=== PATIENT | male | born 1995 | race Caucasian/White ===

== ENCOUNTER 2019-07-11 06:47 | Emergency (ER) | payer BC ==
[~2019-07-11] VITALS: Ht 185.4 cm; Wt 95.3 kg
[2019-07-11 06:55] VITALS: BP_SYST 149
--- NOTE | 2019-07-11 07:03 | NUR ---
Patient is awake, alert, and oriented x4. Patient is complaining of constipation x3 days with rectal pain, abdominal pain, nausea and vomiting x1. Patient reports going to urgent care yesterday, rectal exam was negative and he was given a prescription that has been ineffective.
--- NOTE | 2019-07-11 07:03 | NUR ---
Patient to ER bed 7 to gown for evaluation. Side rails up. Report given to NORAH PARNELL.
--- NOTE | 2019-07-11 07:49 | NUR ---
ER Dr. Isidro at bedside examining patient.
--- NOTE | 2019-07-11 07:57 | NUR ---
X-ray at bedside.
[2019-07-11 08:30] VITALS: BP_SYST 138
--- NOTE | 2019-07-11 08:30 | NUR ---
Patient given written and verbal discharge instructions and verbalizes understanding. ER MD discussed with patient the results and treatment provided. Patient in stable condition. ID arm band removed. Rx of miralax, flagyl, cipro, tylenol given. Patient educated on pain management and to follow up with PMD. Pain Scale 0/10. Opportunity for questions provided and answered. Medication side effect fact sheet provided.
== END 2019-07-11 08:30 | disposition home or self-care (01) ==
LOC: SED 06:47
DX: K62.89 Other specified diseases of anus and rectum (principal)
CPT/HCPCS: 72170-TC; 99283

== ENCOUNTER 2019-07-14 13:53 | Emergency (ER) | payer BC ==
[~2019-07-14] VITALS: Ht 185.4 cm; Wt 94.3 kg
[2019-07-14 14:14] VITALS: BP_SYST 160
--- NOTE | 2019-07-14 15:21 | NUR ---
Patient to ER bed 06 for evaluation. Side rails up. Report given to Kayleigh PARNELL.
--- NOTE | 2019-07-14 15:25 | NUR ---
Patient arrived in the ED c/o rectal pain and minimal bleeding that started on Saturday. Patient was seen in [facility] and was prescribed a rectal cream and antibiotic. Denied any chest pain or shortness of breath. Denied any fevers, nausea, vomiting, or chills. Patient is alert and oriented x4, respirations even and unlabored, speaking in full sentences, ambulating with a steady gait. VSS, pain level 6/10. Mom at bedside. Informed of wait time. Instructed to notify ED staff for any changes in condition or worsening of symptoms. Patient verbalized understanding.
--- NOTE | 2019-07-14 16:00 | NUR ---
ER Dr. Hedrick at bedside examining patient.
[2019-07-14] MEDS ORDERED: MORPHINE 4 MG/ML INJ. SYRINGE IVP ONE (16:15)
[2019-07-14] MEDS ORDERED: ONDANSETRON HCL 4 MG/2 ML VIAL IVP ONE (16:15)
--- NOTE | 2019-07-14 16:22 | NUR ---
Administered Zofran and Morphine IVP as ordered by Dr. Hedrick. Patient tolerated the medications well. See eMAR for details.
--- NOTE | 2019-07-14 16:22 | NUR ---
# 20 gauge angiocath placed to LAC. Use of asceptic technique. Opsite placed over site. Blood return noted. Blood for lab drawn from site. Flushed with 10 cc of normal saline. No evidence of infiltration noted. Patient tolerated well.
[2019-07-14] MEDS ORDERED: IOHEXOL 100 ML IV ONE (16:33)
[2019-07-14 16:40] LABS: BASOPHILS % (AUTO) 0.2 % (0.0-2.0); EOSINOPHILS % (AUTO) 0.2 % (0.0-4.0); HEMATOCRIT 49.5 % (36-54); HEMOGLOBIN 16.7 g/dL (14.0-18.0); LYMPHOCYTES % (AUTO) 8.1 % (20.5-51.5); MEAN CORPUSCULAR HEMOGLOBIN 31 pg (27-31); MEAN CORPUSCULAR HGB CONC 34 % (32-36); MEAN CORPUSCULAR VOLUME 92 fL (79.0-98.0); MONOCYTES # (AUTO) 1.1 K/uL (0.0-1.0); MONOCYTES % (AUTO) 8.7 % (1.7-9.3); NEUTROPHILS # (AUTO) 10.3 K/uL (1.8-7.7); NEUTROPHILS % (AUTO) 82.8 % (40.0-70.0); PLATELET COUNT (AUTO) 256 K/uL (130-430); RED BLOOD CELL COUNT(AUTO) 5.37 MIL/uL (4.2-6.2); RED CELL DISTRIBUTION WIDTH 13.2 % (9.0-15.0); WHITE BLOOD COUNT (AUTO) 12.5 K/uL (4.8-10.8)
--- NOTE | 2019-07-14 16:50 | NUR ---
Consent for CT signed.
--- NOTE | 2019-07-14 16:53 | NUR ---
Patient is taken to CT via wheelchair, in stable condition.
[2019-07-14 17:04] LABS: CALCIUM 9.4 mg/dL (8.4-11.0); CREATININE 1.04 mg/dL (0.55-1.30); POTASSIUM 4.1 mmol/L (3.5-5.1)
--- NOTE | 2019-07-14 17:05 | NUR ---
Patient is back from CT, in stable condition.
--- NOTE | 2019-07-14 17:08 | NUR ---
Dad at bedside.
[2019-07-14 17:09] LABS: ALBUMIN 3.5 g/dL (3.4-4.8); TOTAL BILIRUBIN 0.5 mg/dL (0.0-1.0)
[2019-07-14] MEDS ORDERED: LIDOCAINE 1% 10 MG/ML, 20 ML MDV INJ ONE (17:45)
== END 2019-07-14 18:07 | disposition home or self-care (01) ==
LOC: SED 13:53
DX: K61.0 Anal abscess (principal)
CPT/HCPCS: 36415; 46050; 72193; 80053; 83605; 85025; 87040; 96374; 96375; 99285; J2270; J2405; Q9967

== ENCOUNTER 2019-07-16 15:57 | Emergency (ER) | payer BC ==
[~2019-07-16] VITALS: Ht 185.4 cm; Wt 95.3 kg
[2019-07-16 16:10] VITALS: BP_SYST 147
[2019-07-16 17:13] VITALS: BP_SYST 147
== END 2019-07-16 17:13 | disposition home or self-care (01) ==
LOC: SED 15:57
DX: Z02.89 Encounter for other administrative examinations (principal)
CPT/HCPCS: 99281